=== PATIENT | male | born 1950 | race Caucasian/White ===

== ENCOUNTER 2024-07-22 13:00 | Emergency (ER) | payer MEDICARE, SELFPAY ==
[2024-07-22 13:03] VITALS: BP 125/69; PULSE 78; RESP 15; TEMP 36.6; O2SAT 94; BMI 29.9
--- NOTE | 2024-07-22 13:56 | ED_ITS ---
HPI - Eye Problem General: Chief complaint: Eye Problems Stated complaint: L eye pain Time Seen by Provider: 07/22/24 13:09 History of Present Illness: 73-year-old male from [place] here vi siting family. He started having eye pain 2 days ago on the left side. He denies any trauma. His ocular history includes a tear duct implant, a remote cataract surgery. He uses no corrective lenses or contacts. No history of any glaucoma. He reports redness and pain to the eye with some blurry vision. At baseline he has baggy eyelids and his says that his eyelids do not always close completely. He uses artificial tears for this. He has chronic watery eyes. No headache. No constitutional symptoms. No history of vasculitis. Right eye does not have any acute problems. Associated symptoms: Denies fever(s), headache(s), nausea, neck pain or vomiting Related Data Home Medications ?Medication ?Instructions ?Recorded ?Confirmed duloxetine 30 mg capsule,delayed 60 mg PO DAILY 07/22/24 release pregabalin 150 mg capsule 150 mg PO BID 07/22/2407/22 rosuvastatin 10 mg tablet 10 mg PO DAILY 07/22/2407/01 tamsulosin 0.4 mg capsule 0.8 mg PO DAILY 07/22/24 Previous Rx's ?Medication ?Instructions ?Recorded [id number] 3.5 1 drp ophthalmic (eye) Q8H 5 days 07/22/24 mg/mL-10,000 unit/mL-0.1% eye #5 mL drops (Maxitrol) Allergies Allergy/AdvReac Type Severity Reaction Status Date / Time No Known Allergies Allergy Verified 07/22/24 13:06 Review of Systems General: Reports: 10 or more systems reviewed and unremarkable except in HPI and below Const: Denies: fever(s), chills or body aches Eyes: Reports: change in vision, blurry vision, photophobia (Mild sensitivity), eye discomfort, eye discharge, eye redness and increased production of tears; Denies: blind spots, floaters or seeing flashes ENMT: Denies: throat pain Card: Denies: chest pain, edema or syncope Resp: Denies: dyspnea or productive cough GI: Denies: abdominal pain, nausea, vomiting or diarrhea : Denies: flank pain, dysuria or urinary frequency Musc: Denies: neck pain, back pain, extremity pain or extremity swelling Skin/Breast: Denies: rash or erythema Neuro: Denies: headache(s), numbness in extremities, weakness in extremities, lack of coordination or difficulty walking Physical Exam Const: COMMON NORMALS: no limitations, alert and well nourished EXAM LIMITATIONS: no altered mental status HENMT: COMMON NORMALS: normocephalic, atraumatic and external ears normal HEAD & SCALP: normocephalic and atraumatic EXTERNAL EAR: Yes external ears normal MOUTH: no muffled voice Eye: OTHER: Patient does have somewhat droopy eyelids bilaterally. He has a tear duct plug in the left lower eyelid on the nasal aspect, he has a meibomian cyst on the right upper medial eyelid margin. He has corneal versus scleral erythema and injection medially and laterally. There is no fluorescein uptake. The pupil is equal round and reactive to light with normal accommodation. Extraocular movements are normal. No double vision. His vision is slightly blurry but is able to read at 5 feet. He had 50% pain improvement with application of tetracaine drops. Slit-lamp examination was performed. The anterior chamber is clear. Intraocular pressure is 8 on the left and 7 on the right. Palpation of the eye itself with the eyelids closed does not cause any reported discomfort. Palpation of the temples is unremarkable. The periorbital space appears normal. Initially, his eyelids were erythematous and he had clear discharge. However, after reevaluation after the tetracaine the erythema has improved significantly. I suspect he may have been rubbing his eyes due to the discomfort and after the tetracaine was applied, he stopped. Neck/C-Spine: COMMON NORMALS: no JVD GENERAL: Yes normal visual inspection and Yes trachea midline Resp: COMMON NORMALS: normal respiratory effort, No use of accessory muscles and clear to auscultation bilaterally AUSCULTATION: clear to auscultation bilaterally Cardio: COMMON NORMALS: no JVD, regular rate and regular rhythm RATE: regular rate RHYTHM: regular rhythm GI: COMMON NORMALS: Soft to palpation and non-tender PALPATION: Yes Soft to palpation and No Guarding due to palpation present (GI) Extremity: COMMON NORMALS: normal to inspection Neuro: COMMON NORMALS: moves all extremities, no focal motor deficits and no sensory deficits noted SENSORIUM/ORIENTATION: Yes alert SPEECH: speech nor mal Psych: COMMON NORMALS: mental status grossly normal, Normal thought process present, cooperative, normal affect and speech normal SPEECH: Yes normal speech THOUGHT PROCESS: Normal thought process present Skin: COMMON NORMALS: no rashes or lesions noted, turgor normal and no jaundice GENERAL SKIN EXAM: no rashes or lesions noted and turgor normal Course Vital Signs: Vital signs: Vital Signs Temperature 97.8 F 07/22/24 13:03 Pulse Rate 74 07/22/24 14:13 Respiratory Rate 15 07/22/24 13:03 Blood Pressure 121/67 07/22/24 14:13 Pulse Oximetry 95 07/22/24 14:13 Oxygen Delivery Me thod Room Air 07/22/24 13:03 MDM - Eye Problem Medical Decision Making Patient's signs and symptoms seem most consistent with uveitis. He has chronic dry eye as his eyelids often do not close completely. He has mild blurry vision, photophobia, watery discharge, injection. There is a meibomian cyst on the upper medial eyelid margin that is likely chronic and incidental. No fluorescein uptake. No ulcers. Anterior chamber clear. No flashers or floaters. No curtain down affect or symptoms that would suggest a retinal detachment or vitreal detachment. Intraocular pressures are normal. I discussed with Dr. Velazquez, heating equipment installer. I sent the identified images to him for review. He has suggested to treat with Maxitrol and follow-up with op hthalmology in 2 to 4 days. Patient and in agreement with plan. No radiology studies performed this visit Discharge Plan Discharge Patient Disposition: Home Clinical Impression: Uveitis of left eye, Meibomian cyst Condition: Stable Prescriptions: New neomycin-polymyxin B-dexameth [Maxitrol] 3.5mg/mL-10,000 unit/mL-0.1 % drops,suspension 1 drp ophthalmic (eye) Q8H 5 Days Qty: 5 0RF No Action tamsulosin 0.4 mg capsule 0.8 mg PO DAILY rosuvastatin 10 mg tablet 10 mg PO DAILY duloxetine 30 mg capsule,delayed release(DR/EC) 60 mg PO DAILY pregabalin 150 mg capsule 150 mg PO BID Discharge Orders: Discharge ED (Routine); Ordered 07/22/24 Ordered By: Cain Marion Patient Instructions: Uveitis (DC) Activity Restrictions/Additional Instructions: Use maxitrol drops in left eye 3x per day. Follow-up with opthamologist in 2-3 days. Go to closest ER if getting worse. Use warm compresses 5x per day. Use artifical eye drops (lubricant) as needed. Print Language: Setswana Coding Level of Care Code ED Technical Support Specialist for Mary Ann Mendoza
[2024-07-22] MEDS: tetracaine 0.5% Op Soln 4 mL Btl 1 DROP EYE-BOTH (13:57)
[2024-07-22] MEDS: fluorescein 1 mg Strip EYE-BOTH (13:57)
[2024-07-22] MEDS: neomycin-poly-dex Op 5 mL Btl 2 DROP EYE-LEFT (14:03)
[2024-07-22 14:13] VITALS: BP 121/67; PULSE 74; O2SAT 95
== END 2024-07-22 14:14 | disposition home or self-care (01) ==
PROVIDERS: Emergency Provider Emergency Medicine
DX: H20.9 Unspecified iridocyclitis (principal); H00.14 Chalazion left upper eyelid
CPT/HCPCS: 99283; J9999